=== PATIENT | male | born 1960 | race Caucasian/White ===

== ENCOUNTER 2017-02-03 21:10 | Emergency (ER) | payer OTHER | END 2017-02-03 22:16 | disposition home or self-care (01) | LOC: ER 21:10 | DX: K02.9 Dental caries, unspecified (principal); F17.220 Nicotine dependence, chewing tobacco, uncomplicated ==

== ENCOUNTER 2017-02-09 20:54 | Emergency (ER) | payer OTHER ==
[~2017-02-09] VITALS: Ht 182.9 cm; Wt 112.5 kg
[~2017-02-09 20:54] MED LIST: OXYCODONE HCL 55 MG PO; PENICILLIN V P500 MG PO
[2017-02-09] MEDS ORDERED: NORCO 5-325 TA1 EACH PO (21:39)
== END 2017-02-09 21:50 | disposition home or self-care (01) ==
LOC: ER 20:54
DX: K02.9 Dental caries, unspecified (principal); F17.220 Nicotine dependence, chewing tobacco, uncomplicated